=== PATIENT | female | born 1990 | race African-American/Black ===

== ENCOUNTER → 2017-01-14 | Day surgery (SDC) | payer OTHER ==
[2017-01-10 15:33] VITALS: BMI 23.3
[2017-01-14 10:05] LABS: BASOPHIL 0.4 % (0-2.0); EOSINOPHIL 0.6 % (0-4.5); MCH 30.5 pg (25.7-33.7); MCHC 34.2 g/dl (32.0-36.0); MEAN CELL VOLUME 89.2 fl (80-96); NEUTROPHILS 41.5 % (42.8-82.8); PLATELET COUNT 252 K/MM3 (134-434); RDW 12.6 % (11.6-15.6); WHITE BLOOD COUNT 6.2 K/mm3 (4.0-10.0)
[2017-01-14 10:31] LABS: INR 1.16 (0.82-1.09); PROTHROMBIN TIME (PATIENT) 12.8 SEC (9.98-11.88)
--- NOTE | 2017-01-15 12:13 | PATH ---
Surgical Pathology Report Patient Name: ROSALBA RIZZO [facility]. Rec. #: [id number] /Age/Gender: 1990 (Age: 26) / F Account: [id number] Location: Taken: 01/14/2017 Received: 01/14/2017 Reported: 01/15/2017 Physicians: Khurram Carrera M.D. Specimen(s) Received LEFT LYMPH NODE BIOPSY Clinical History 26-year-old female with large left submandibular lymph node Final Diagnosis LEFT SUBMANDIBULAR LYMPH NODE, NEEDLE CORE BIOPSY: REACTIVE LYMPHOID TISSUE WITH FOLLICULAR AND INTERFOLLICULAR LYMPHOID HYPERPLASIA. NO LYMPHOMA OR METASTATIC CARCINOMA IDENTIFIED. Comment: Flow Cytometry performed and interpreted at [place], [place] ([id number]) shows the following: INTERPRETATION: No clonal B-cell or atypical T-cell population detected. If lymphadenopathy does not resolve, complete excision of the lymph node may be useful if clinically indicated. Electronically Signed Serge Pathak M.D. Gross Description Received in formalin labeled "left lymph node biopsy," are 4 osman, cylindrical portions of soft tissue ranging from 0.4-0.9 cm in length and averaging 0.1 cm in diameter. The specimens are submitted in toto in one cassette. There is additional tissue received in RPMI solution which is sent for flow cytometry. /01/14/201701/14/2017
== END | disposition home or self-care (01) ==
LOC: JRADIR 09:10
PROVIDERS: ATTEND Otolaryngology Facial Plastic Surgery
PROC: BW4FZZZ Ultrasonography of Neck (ICD-10-PCS; principal; 2017-01-14)
PROC: 07B23ZX Excision of Left Neck Lymphatic, Percutaneous Approach, Diagnostic (ICD-10-PCS; 2017-01-14)
DX: R59.0 Localized enlarged lymph nodes (principal)
CPT/HCPCS: 36415; 76942; 84703; 85025; 85610; 88305-TC

== ENCOUNTER 2017-01-25 06:51 | Day surgery (SDC) | payer OTHER ==
[2017-01-24 09:12] VITALS: BMI 23.3
[2017-01-25] MEDS ORDERED: LIDOCAINE 1%/EPI 1:100000 (50 ML MULTI DOSE VIAL) ONE (08:26)
--- NOTE | 2017-01-25 08:30 | HP ---
History & Physical Update - Physical Physical: No Change - Assessment Assessment: No Change - Plan Plan: No Change (left lymph node biopsy (cervical). - reviewed incision placement, risk to marginal mandibular nerve, false negative, among other risks/ benefits/limitations/alternatives.)
[2017-01-25] MEDS ORDERED: MIDAZOLAM HCL 2 MG/2 ML SINGLE DOSE VIAL ONE (08:34)
[2017-01-25] MEDS ORDERED: PROPOFOL 20 ML ONE ×4 (08:34→09:19)
[2017-01-25] MEDS ORDERED: SUCCINYLCHOLINE CHLORIDE 200 MG/10 ML VIAL ONE (08:36)
[2017-01-25] MEDS ORDERED: LIDOCAINE 1%/EPI 1:100000 (20 ML MULTI DOSE VIAL) INF ONE (09:02)
[2017-01-25] MEDS ORDERED: ceFAZolin SODIUM 1 GM VIAL IVPB ONE (09:05)
[2017-01-25] MEDS ORDERED: LIDOCAINE HCL 2% 100 MG/5 ML DISP.SYRIN ONE (09:18)
[2017-01-25] MEDS ORDERED: PHENYLEPHRINE HCL 10 MG/1 ML SINGLE DOSE VIAL ONE (09:37)
[2017-01-25] MEDS ORDERED: BACITRACIN 15 GM TUBE TOPICAL OINTMENT ONE (10:18)
[2017-01-25] MEDS ORDERED: BACITRACIN 15 GM TUBE TOPICAL OINTMENT TP ONE ×2 (10:20)
[2017-01-25] MEDS ORDERED: ONDANSETRON 4 MG/2 ML VIAL IVPUSH PRN (11:01)
[2017-01-25] MEDS ORDERED: LACTATED RINGERS SOLUTION 1,000 ML IV SCH (11:15)
--- NOTE | 2017-01-25 11:17 | OP ---
Operative Note - Note: Operative Date: 01/25/17 Pre-Operative Diagnosis: Left Cervical Lymph Node Operation: Excision of left neck lymph node. loupe magnification used Surgeon: Vincent Elliott Anesthesiologist/PLUMBING INSPECTOR: Nidhi Berkowitz Anesthesia: General Specimens Removed: left neck node Estimated Blood Loss (mls): 5 Fluid Volume Replaced (mls): 800 Operative Report Dictated: Yes
[2017-01-25] MEDS ORDERED: oxyCODONE HCL 5 MG TABLET PO PRN (12:16)
[2017-01-25] MEDS ORDERED: oxyCODONE HCL 5 MG TABLET ONE (12:23)
[2017-01-25 15:18] VITALS: BP 110/70; PULSE 72
[2017-01-25 15:39] VITALS: TEMP 97.8
--- NOTE | 2017-01-26 09:34 | OP ---
DATE OF OPERATION: 01/25/2017 ATTENDING SURGEON: Kirit Hurd MD ASSISTANTS: None. PREOPERATIVE DIAGNOSIS: Left cervical adenopathy. POSTOPERATIVE DIAGNOSIS: Left cervical adenopathy. PROCEDURE PERFORMED: Left cervical lymph node excisional biopsy. ANESTHESIA: General endotracheal anesthesia. ANESTHESIOLOGIST: Nidhi Berkowitz MD INTRAVENOUS FLUIDS: 800 mL crystalloid. ESTIMATED BLOOD LOSS: Less than 5 mL. SPECIMEN: Left cervical node biopsy. DRAINS: None. INDICATIONS: The patient is a 26-year-old woman who presented to my office last month with a 1-month history of left cervical adenopathy. It was relatively stable, possibly decreasing in size. She had a previous needle biopsy which was negative. A CT scan showed a 3-cm left cervical lymph node as well as other enlarged lymph nodes on the left side. A repeat needle biopsy was done with flow cytometry, and this was also negative. The patient returned. However, was noted to have ongoing cervical lymphadenopathy with no appreciable change and a cervical lymph node up to 3 cm on the left. The options were discussed with the patient. The patient was aware that this could be a benign process. However, it could also represent malignancy or possibly a lymphoma which is often not detected on flow cytometry; so, the patient elected to proceed with excisional biopsy. the benefits, risks, limitations, and alternatives were explained to the patient in full detail including, but not limited to, wound healing problems, scar, keloid, numbness at the site or the ear or of the tongue, weakness of the lower lip/pucker from damage to the marginal mandibular nerve, postoperative hematoma, false negative biopsy, and need for further procedures. All of her questions were answered. She demonstrated understanding. Informed consent was obtained. She understands there is no guarantee of the outcome of the surgery and that further medical and/or surgical treatment may be necessary. FINDINGS: A 3-cm submandibular lymph node excised. PROCEDURE IN DETAIL: The patient was taken from the preoperative area to the OR and placed on the table in the supine position. General anesthesia was induced, and the patient was intubated. A timeout was called, and she received a perioperative dose of antibiotic. SCDs were in place for DVT prophylaxis. The operative site was marked out and infiltrated with lidocaine with epinephrine with observation by the anesthesiologist. The patient was then prepped and draped in standard fashion. Care was taken to ensure the patient was not paralyzed, in conjunction with the anesthesiologist, to ensure visualization of marginal mandibular activity if stimulated. The incision was made in one of the patient's neck skin folds 2 fingerbreadths below the mandible, closer to the angle. The incision was carried down through the platysma, into the tissue unto the soft tissue of the neck. Mostly blunt dissection was used with a peanut and a dissecting instrument to get down to the plane around the lymph node. When tissue ligation was needed, the bipolar was used with stimulation of the tissue preceding it to ensure no activity of the marginal mandibular nerve. The tissue overlying the lymph node was entered inferiorly and swept upwards with the peanut to minimize the risk to the marginal mandibular nerve. Once the tissue around the lymph node was dissected, it was removed and sent off for pathology for fresh evaluation and touch prep and to rule out lymphoma. The wound was then irrigated, and a Valsalva was performed. No bleeding was seen. The platysma was then closed with 3-0 Vicryl sutures, followed by the subcutaneous layers. The skin was closed with interrupted mattress sutures using a 5-0 nylon. All counts were correct. KIRIT HURD M.D. [id number]
--- NOTE | 2017-01-28 12:59 | PATH ---
Surgical Pathology Report Patient Name: ROSALBA RIZZO [facility]. Rec. #: [id number] /Age/Gender: 1990 (Age: 26) / F Account: [id number] Location: [facility] Taken: 01/25/2017 Received: 01/25/2017 Reported: 01/28/2017 Physicians: Vincent Elliott M.D. Specimen(s) Received LEFT CERVICAL LYMPH NODE Clinical History Enlarged submandibular lymph node Final Diagnosis LYMPH NODE, LEFT CERVICAL, EXCISION: FLORID REACTIVE FOLLICULAR AND INTERFOLLICULAR LYMPHOID HYPERPLASIA WITH LYSIS OF FOLLICLES. NO LYMPHOMA OR OTHER NEOPLASM IDENTIFIED. Comment: Flow Cytometry performed and interpreted at [place], [place] ([id number]) shows the following: INTERPRETATION: There is no evidence of B or T-cell proliferative disorders or clonal plasma cells. Also see prior specimen [id number]. Electronically Signed Serge Pathak M.D. Addendum Reported: 02/07/2017 Addendum Diagnosis This case was seen in consultation with Dr. Jitendra Fields of hematopathology service at [place], [place] ([id number]). The service consultant's opinion is as follows: Lymph node, submandibular (left), excision: Florid lymphoid hyperplasia with progressive transformation of germinal centers. Comment: Sections show an enlarged lymph node surrounded by thin capsule. There is a nodular architecture with numerous secondary follicles. The germinal centers have a normal architecture, and contain centrocytes, central loss and tingible body macrophages. Scattered progressive transformation of germinal center is present. Immunohistochemical stains are performed on block #2 with appropriate controls. Stains for CD20 and CD3 highlight normal compartmentalization of B-cells and T-cells, respectively. The germinal centers are positive for BCL-6 and negative for BCL-2. A stain for CD21 highlights intact follicular dendritic meshwork, except in the progressively transformed germinal centers, where they are disrupted. Stain for CD30 highlights scattered immunoblasts. A stain for cyclin-D1 is negative in lymphocytes. A stain for OCT2 is similar to CD20. Stain for MUM-1 highlights scattered positive cells. A stain for cytokeratin Ae1/Ae3 is negative. In situ hybridization for TAMICA highlights rare positive cells. Miguel Dasilva M.D. Gross Description Received fresh labeled "left cervical lymph node," are 2 pink-osman, ovoid lymph nodes measuring 0.6 x 0.5 x 0.3 cm and 2.8 x 1.8 x 1.0 cm. The larger lymph node is serially sectioned and a manufacturer representative portion is submitted in RPMI solution and sent for flow cytometry. The remainder of the specimen is entirely submitted in 4 cassettes as follows: 3-2-tcirwxsap of larger lymph node; 4-smaller lymph node. 01/25/201701/25/2017
== END 2017-01-25 14:50 | disposition home or self-care (01) ==
LOC: JASU-SURG 06:51
PROVIDERS: ATTEND Otolaryngology Facial Plastic Surgery
PROC: 07B20ZX Excision of Left Neck Lymphatic, Open Approach, Diagnostic (ICD-10-PCS; principal; 2017-01-25 08:30)
DX: R59.0 Localized enlarged lymph nodes (principal)
CPT/HCPCS: 84703; 88305-TC; 94760